=== PATIENT | female | born 1980 | race Two or more races ===

== ENCOUNTER 2024-12-09 13:33 | Emergency (ER) | payer OTHER ==
[~2024-12-09] VITALS: Ht 162.6 cm; Wt 90.7 kg
[2024-12-09] MEDS ORDERED: PRENATA CHEWAB1 EACH (15:23)
[2024-12-09 16:39] LABS: BASO % 0.2 % (0.1-1.2); EOS # 0.08 (0.04-0.54); EOS % 0.5 % (0.7-7.0); LYMPH # 2.84 (1.18-3.74); LYMPH % 18.1 % (19.3-53.1); MEAN PLATELET VOLUME 11.40 fl (9.4-12.4); MONO # 0.82 (0.24-0.82); MONO % 5.2 % (4.7-12.5); NEUT # 11.78 (1.56-6.13); NEUT % 75.1 % (34.0-71.1); RED CELL DISTRIBUTION WIDTH 12.6 % (11.6-14.4)
[2024-12-09 16:54] LABS: URINE APPEARANCE Clear; URINE BILIRRUBIN Negative (NEGATIVE); URINE BLOOD Negative; URINE COLOR Yellow; URINE GLUCOSE Negative (NEGATIVE); URINE KETONE Trace (NEGATIVE); URINE LEUKOCYTE Negative; URINE NITRATE Negative; URINE PROTEIN Trace (NEGATIVE); URINE UROBILINOGEN 1.0 E.U./dl
[2024-12-09 16:55] LABS: URINE BACTERIA 1198.6 uL (0.0-1933); URINE EPITHELIAL CELLS 15.2 uL (0.0-38.8); URINE WBC 8.7 uL (0.0-23.2)
[2024-12-09 17:01] LABS: URINE CAST 0.29 uL (0.0-1.40); URINE RBC 0.7 uL (0.0-20.8)
[2024-12-09 17:24] LABS: ALT/SGPT 30.0 U/L (12-78); AST/SGOT 18.0 U/L (15-37); BILIRUBIN TOTAL 0.2 mg/dL (0.3-1.2); BUN CREA RATIO 21.0 (7.0-25.0); COVID-19 AG NEGATIVE (NEGATIVE); CREATININE SERUM 0.53 mg/dL (0.55-1.02); GFR 124.75; GLOBULINA 3.0 G/DL (2.4-3.5); GLUCOSE FASTING 108.0 mg/dL (65-100); OSMOLALITY SERUM 279.0 MOSM/KG (275-295); TSH 2.08 uIU/mL (0.358-3.74)
[2024-12-09 17:25] LABS: HCG QUANTITATIVE 6506.0 mUI/mL (1-3)
== END 2024-12-09 22:35 ==
LOC: ER 13:33
PROVIDERS: General Practice
DX: O99.412 Diseases of the circulatory system complicating pregnancy, second trimester (principal); I99.8 Other disorder of circulatory system; Z3A.20 20 weeks gestation of pregnancy; R00.2 Palpitations; R53.81 Other malaise; Z20.822 Contact with and (suspected) exposure to COVID-19